=== PATIENT | male | born 1945 | race Caucasian/White ===

== ENCOUNTER 2017-08-17 17:43 | Emergency (ER) | payer OTHER ==
[2017-08-17 18:16] LABS: EOSINOPHIL (%) 1.1 % (0-5); EOSINOPHIL COUNT 0.2 K/uL (0-0.3); HEMATOCRIT 39.6 % (38.0-50.0); IMMATURE GRANULOCYTE (%) 1.4 % (0.0-0.7); IMMATURE GRANULOCYTE COUNT 0.2 K/uL; INSTRUMENT ABS NEUTROPHIL CT 11.5 K/uL; LYMPHOCYTE COUNT 1.5 K/uL (1.0-2.8); MCH 30.9 PG (29.0-34.0); MCHC 32.6 G/DL (30.0-36.0); MCV 94.7 FL (86-99); MEAN PLAT.VOLUME 9.8 uM^3 (9.0-12.4); MONOCYTE (%) 6.2 % (3-12); MONOCYTE COUNT 0.9 K/uL (0-0.8); NEUTROPHIL (%) 80.6 % (45-76); NEUTROPHIL COUNT 11.5 K/uL (1.8-6.4); PLATELET COUNT 204 K/uL (156-360); RBC DIS.WIDTH-CV 13.9 % (11.8-14.6); RBC DIS.WIDTH-SD 48.3 % (39-53); RED BLOOD COUNT 4.18 M/uL (4.00-5.50); WHITE BLOOD COUNT 14.2 K/uL (4.1-10.2)
[2017-08-17 18:26] LABS: AMYLASE 43 IU/L (1-118); CHLORIDE 110 mEq/L (99-109); POTASSIUM 3.7 mEq/L (3.7-5.4); SODIUM 144 mEq/L (136-147)
[2017-08-17 18:28] LABS: GLUCOSE 120 mg/dL (70-99)
[2017-08-17 18:29] LABS: ANION GAP 14 MEQ/L (2-14)
[2017-08-17 18:31] LABS: SERUM ETHYL ALCOHOL < 10 mg/dL
[2017-08-17 18:33] LABS: UREA NITROGEN (BUN) 19 mg/dL (9-23)
[2017-08-17 18:35] LABS: GFR ESTIMATE (CALCULATED) > 59 mL/min/; LIPASE 17 U/L (1.0-51.0)
[2017-08-17 18:37] LABS: TROP-I INTERPRETATION NEGATIVE; TROPONIN-I < 0.01 ng/mL (0.0-0.30)
[2017-08-17 21:48] LABS: PROTHROMBIN TIME 11.3 SEC (10.2-12.9)
[2017-08-17 21:50] LABS: PTT 24.1 SEC (25-37)
[2017-08-17 22:42] LABS: ADD MIUA? YES; BILIRUBIN NEGATIVE; BLOOD SMALL; COLOR YELLOW ((YELLOW)); GLUCOSE (STRIP) NEGATIVE; KETONES 80; LEUKOCYTES NEGATIVE; NITRITE NEGATIVE; PROTEIN (STRIP) NEGATIVE; UROBILINOGEN 0.2 MG/DL (0.2-1.0)
[2017-08-17 22:50] LABS: AMPHETAMINE NEGATIVE (500 ng/mL); BARBITURATES NEGATIVE (200 ng/mL); BENZODIAZEPINES NEGATIVE (150 ng/mL); COCAINE NEGATIVE (150 ng/mL); INTERNAL CONTROLS VALID? YES; METHADONE NEGATIVE (200 ng/mL); METHAMPHETAMINE NEGATIVE (500 ng/mL); OPIATES (MORPHINE) PRESUMPTIVE POSITIVE (100 ng/mL); OXYCODONE NEGATIVE (100 ng/mL); PHENCYCLIDINE NEGATIVE (25 ng/mL); PROPOXYPHENE NEGATIVE (300 ng/mL); THC CANNABINOIDS NEGATIVE (50 ng/mL); TRICYCLIC ANTIDEPRESSANTS NEGATIVE (300 ng/mL)
[2017-08-17 22:51] LABS: ADD MEDTOX COMMENT Y
[2017-08-17 23:02] LABS: BACTERIA NONE SEEN /HPF; EPITHELIAL CELLS RARE /HPF; MUCUS TRACE /LPF; UCUL ADDED? NO; WHITE BLOOD CELLS 0-5 /HPF (0-5)
== END 2017-08-17 23:43 | disposition short-term general hospital (02) ==
LOC: TRA 17:43
PROVIDERS: Emergency Medicine
DX: S52.272A Monteggia's fracture of left ulna, initial encounter for closed fracture (principal); S82.851A Displaced trimalleolar fracture of right lower leg, initial encounter for closed fracture; S60.511A Abrasion of right hand, initial encounter; V47.0XXA Car driver injured in collision with fixed or stationary object in nontraffic accident, initial encounter; R55 Syncope and collapse; Z79.01 Long term (current) use of anticoagulants; Z79.82 Long term (current) use of aspirin
CPT/HCPCS: 70450; 71260; 72125; 73060; 73090; 73120; 73590; 73600; 73610; 74177; 80048; 81003; 82150; 83690; 84484; 84999; 85025; 85610; 85730; 86850; 86900; 86901; 93005; 99281; 99285; G0480; J2270